=== PATIENT | male | born 1970 | race Two or more races ===

== ENCOUNTER 2018-11-14 16:58 | Emergency (ER) | payer SELFPAY ==
[~2018-11-14] VITALS: Ht 182.9 cm; Wt 122.5 kg
[2018-11-14] MEDS: cefTRIAXone 1GM/50ML D5W 50 ML IV ONE (20:11)
[2018-11-14 20:12] LABS: Eosinophils # (auto) 0.2 uL
[2018-11-14 20:14] LABS: Basophils # (auto) 0.1 uL; Basophils % (auto) 0.9 % (0.0-2.0); Eosinophils % (auto) 1.9 % (0.0-7.0); Hematocrit 44.7 % (41.0-53.0); Hemoglobin 15.2 g/dL (13.5-17.5); Lymphocytes # (auto) 2.2 uL; Lymphocytes % (auto) 21.8 % (10.0-50.0); Mean Corpuscular Volume 99.8 fL (80.0-100.0); Monocytes # (auto) 0.6 uL; Monocytes % (auto) 6.3 % (0.0-12.0); Neutrophils # (auto) 6.9 uL; Neutrophils % (auto) 69.1 % (37.0-80.0); Platelet Count (auto) 219 10^3/uL (140-450); Red Blood Cells 4.48 10^6/uL (4.5-5.90); Red Cell Distribution Width 13.4 % (11.8-14.3)
[2018-11-14 20:29] LABS: Albumin 3.2 g/dL (3.4-5.0); Calcium 8.5 mg/dL (8.5-10.1); Potassium 4.1 mmol/L (3.5-5.1)
[2018-11-14 20:32] LABS: Bilirubin, Total 0.3 mg/dL (0.2-1.0); Total Protein 7.7 g/dL (6.4-8.2)
[2018-11-14] MEDS: cloNIDine HCL 0.1 MG TAB PO ONE (21:21)
[2018-11-14 21:59] VITALS: BP 127/87
== END 2018-11-14 22:37 | disposition home or self-care (01) ==
LOC: ER 16:58
DX: L02.215 Cutaneous abscess of perineum (principal); I10 Essential (primary) hypertension
CPT/HCPCS: 36415; 80053; 85025; 96365; 99283; J0696